=== PATIENT | female | born 1990 | race African-American/Black ===

== ENCOUNTER 2019-06-10 09:13 | Emergency (ER) | payer MEDICAID, OTHER ==
[~2019-06-10] VITALS: Ht 160 cm; Wt 62.0 kg
[2019-06-10 09:52] LABS: CLARITY,URINE SLIGHTLY CLOUDY (Clear); COLOR,URINE YELLOW (Yellow); GLUCOSE, URINE NEGATIVE (Neg); KETONES,URINE 15 mg/dl (Neg); LEUKOCYTE ESTERASE ,URINE NEGATIVE (Neg); NITRITES, URINE NEGATIVE (Neg); OCCULT BLOOD,URINE NEGATIVE (Neg); PH,URINE 5.5 (4.8-8.0); PROTEIN,URINE NEGATIVE (Neg); UROBILINOGEN,URINE 0.2 E.U/dL (0.2-1.0)
[2019-06-10 09:53] LABS: URINE HCG POSITIVE (NEG)
[2019-06-10 09:54] LABS: UA COLLECTION TYPE CLN CATCH MIDSTREAM
--- NOTE | 2019-06-10 09:54 | NUR ---
PATIENT STATES THAT SHE THINKS SHE IS WITH LMP END OF 2018. PATIENT WOULD LIKE WITH "A PILL" IF POSSIBLE. DENIES MEDICAL HX.
[2019-06-10 09:55] VITALS: BP 136/86
[2019-06-10 09:59] LABS: MUCUS STRANDS FEW /LPF (Neg); RBC,URINE 0-2 /HPF (0-2); SQUAMOUS EPITHELIAL CELL,UR MODERATE /LPF (FEW); WBC,URINE 0-4 /HPF (0-4)
[2019-06-10 10:00] LABS: BACTERIA,URINE 1+ /HPF (Neg)
== END 2019-06-10 10:32 | disposition home or self-care (01) ==
LOC: ER 09:14
DX: Z33.2 Encounter for elective termination of pregnancy (principal); Z3A.01 Less than 8 weeks gestation of pregnancy
CPT/HCPCS: 81001; 81025; 99283

== ENCOUNTER 2019-06-11 19:39 | Emergency (ER) | payer MEDICAID, OTHER ==
[~2019-06-11] VITALS: Ht 160 cm; Wt 59.1 kg
[2019-06-11 19:41] VITALS: BP 128/81
--- NOTE | 2019-06-11 20:11 | NUR ---
RELIEVING RN FOR BREAK, PT IS RESTINGQ QUIETLY ON GURNEY, LMP 04/21, [facility] , WANTS TO COMFIRM HOW OLD THE BABY IS, WOULD LIKE TO TERMINATE , PT IS HOMELESS X2DAYS, BEEN IN [place] FOR ONE MONTH, WAS STAYING WITH FRIEND, INTERESTED IN GOING [place], DR SAUCEDA AT BEDSIDE TO EVAL PT
== END 2019-06-11 20:45 | disposition home or self-care (01) ==
LOC: ER 19:40
DX: Z34.92 Encounter for supervision of normal pregnancy, unspecified, second trimester (principal); Z59.0 Homelessness; Z3A.18 18 weeks gestation of pregnancy
CPT/HCPCS: 99281